=== PATIENT | female | born 1980 | race Caucasian/White ===

== ENCOUNTER 2016-08-28 12:42 | Emergency (ER) | payer OTHER ==
[~2016-08-28] VITALS: Ht 162.6 cm; Wt 63.5 kg
[~2016-08-28 12:42] MED LIST: CYCL5TAB PO; GABA100C4 PO; IBUP600T26 PO
[2016-08-28 12:49] VITALS: BP 124/87; PULSE 104; RESP 16; TEMP 98.1; O2SAT 98
[2016-08-28] MEDS ORDERED: SODIUM CHLOR 0.9% 1000 ML INJ 1,000 ML IV ONE (13:02)
--- NOTE | 2016-08-28 13:06 | PD ---
HPI Chief Complaint: Headache Time Seen by Provider: 13:02 Travel History International Travel<30 days: No Contact w/Intl Traveler<30days: No Traveled to known affect area: No History of Present Illness HPI 35-year-old female with history of migraine headaches, presents to the ER today because of 2 days history of frontal headaches which she states has been more severe than usual, she states is a 10 out of 10, and she has been nauseous. She denies any photophobia, neck stiffness, fevers, or any other symptoms. She states that they are typical for migraine headaches but they usually do not get this bad. She has been using Goody powder for the headaches. She currently rates the headache as a 10 out of 10. She states that she has fears that at home for the headaches but she did not take it because she does not want to get sleepy. Modifying Factors: None Associated Signs & Symptoms: Headaches Risk Factors: History of migraine headaches PFSH Past Medical History Hx Anticoagulant Therapy: No Autoimmune Disease: No Anxiety: Yes Depression: Yes Cardiovascular Problems: No Chemotherapy: No Cerebrovascular Accident: No Diabetes: No Diminished Hearing: No Endocrine: No Immune Disorder: No Musculoskeletal: No Neurologic: Yes (FREQUENT H/A) Psychiatric: Yes Reproductive: No Respiratory: No Migraines: Yes ?: Not LMP: THIS WEEK : 0 Past Surgical History Pacemaker: No Tonsillectomy: Yes Other Surgery: Yes Social History Alcohol Use: No Tobacco Use: No Substance Use: No Allergies-Medications (Allergen,Severity, Reaction): Coded Allergies: Amitriptyline (Verified Allergy, Intermediate, MUSCLE TWITCHING, 08/28/16) Reported Meds & Prescriptions Reported Meds & Active Scripts Active Reported Adipex-P (Phentermine HCl) 37.5 Mg Tab 37.5 Mg PO DAILY Zoloft (Sertraline HCl) 100 Mg Tab 100 Mg PO HS Necon 1/35 (Norethindrone-Ethinyl Estradiol) 1-35 Mg-Mcg Tab 1 Tab PO DAILY Fioricet (Ncbpilqjbg-Ltnvvcjspqxqd-Wdcvvzac) 50-300-40 Mg Cap 1-2 Cap PO Q6H PRN Review of Systems Except as stated in HPI: all other systems reviewed are Neg Physical Exam Narrative GENERAL: Well-developed young female patient currently mild distress. Awake and oriented 3. Sitting in a lighted room, no photophobia. SKIN: Focused skin assessment warm/dry. HEAD: Atraumatic. Normocephalic. EYES: Pupils equal and round. No scleral icterus. No injection or drainage. ENT: No nasal bleeding or discharge. Mucous membranes pink and moist. NECK: Trachea midline. No JVD. CARDIOVASCULAR: Regular rate and rhythm. No murmur appreciated. RESPIRATORY: No accessory muscle use. Clear to auscultation. Breath sounds equal bilaterally. GASTROINTESTINAL: Abdomen soft, non-tender, nondistended. Hepatic and splenic margins not palpable. MUSCULOSKELETAL: No obvious deformities. No clubbing. No cyanosis. No edema. NEUROLOGICAL: Awake and alert. No obvious cranial nerve deficits. Motor grossly within normal limits. Normal speech. PSYCHIATRIC: Appropriate mood and affect; insight and judgment normal. Data Data Last Documented VS Vital Signs Date Time Temp Pulse Resp B/P Pulse Ox O2 Delivery O2 Flow Rate FiO2 08/28/16 14:28 82 117/75 100 08/28/16 12:49 98.1 16 Orders Complete Blood Count With Diff (08/28/16 13:02) Basic Metabolic Panel (Bmp) (08/28/16 13:02) Ecg Monitoring (08/28/16 13:02) Iv Access Insert/Monitor (08/28/16 13:02) Oximetry (08/28/16 13:02) Sodium Chloride 0.9% Flush (Ns Flush) (08/28/16 13:15) Ketorolac Inj (Toradol Inj) (08/28/16 13:15) Diphenhydramine Inj (Benadryl Inj) (08/28/16 13:15) Metoclopramide Inj (Reglan Inj) (08/28/16 13:15) Sodium Chlor 0.9% 1000 Ml Inj (Ns 1000 M (08/28/16 13:02) Urinalysis - C+S If Indicated (08/28/16 13:02) Ed Urine Pregnancytest Poc (08/28/16 13:02) Urine Culture (08/28/16 13:27) Labs Laboratory Tests Test 08/28/16 08/28/16 13:22 13:27 White Blood Count 8.1 TH/MM3 Red Blood Count 4.16 MIL/MM3 Hemoglobin 12.7 GM/DL Hematocrit 37.8 % Mean Corpuscular Volume 90.9 FL Mean Corpuscular Hemoglobin 30.5 PG Mean Corpuscular Hemoglobin 33.5 % Concent Red Cell Distribution Width 12.1 % Platelet Count 301 TH/MM3 Mean Platelet Volume 9.0 FL Neutrophils (%) (Auto) 67.6 % Lymphocytes (%) (Auto) 25.0 % Monocytes (%) (Auto) 6.4 % Eosinophils (%) (Auto) 0.8 % Basophils (%) (Auto) 0.2 % Neutrophils # (Auto) 5.5 TH/MM3 Lymphocytes # (Auto) 2.0 TH/MM3 Monocytes # (Auto) 0.5 TH/MM3 Eosinophils # (Auto) 0.1 TH/MM3 Basophils # (Auto) 0.0 TH/MM3 CBC Comment DIFF FINAL Differential Comment Sodium Level 140 MEQ/L Potassium Level 4.1 MEQ/L Chloride Level 104 MEQ/L Carbon Dioxide Level 26.9 MEQ/L Anion Gap 9 MEQ/L Blood Urea Nitrogen 6 MG/DL Creatinine 0.63 MG/DL Estimat Glomerular Filtration 109 ML/MIN Rate Random Glucose 87 MG/DL Calcium Level 9.2 MG/DL Urine Collection Type CLEAN CATCH Urine Color YELLOW Urine Turbidity SLIGHT Urine pH 7.0 Urine Specific [place] 1.014 Urine Protein NEG mg/dL Urine Glucose (UA) NEG mg/dL Urine Ketones NEG mg/dL Urine Occult Blood SMALL Urine Nitrite NEG Urine Bilirubin NEG Urine Leukocyte Esterase NEG Urine RBC 4-9 /hpf Urine WBC 0-2 /hpf Urine Squamous Epithelial 0-5 /hpf Cells Urine Amorphous Sediment FEW Urine Bacteria MOD /hpf Microscopic Urinalysis Comment CULTURE INDICATED Urine Collection Time 1327 MDM Medical Decision Making Medical Screen Exam Complete: Yes Emergency Medical Condition: Yes Medical Record Reviewed: Yes Interpretation(s) Laboratory Tests Test 08/28/16 08/28/16 13:22 13:27 Blood Urea Nitrogen 6 MG/DL (7-18) Urine Occult Blood SMALL (NEG) Urine RBC 4-9 /hpf (0-3) Urine Bacteria MOD /hpf (NONE) Differential Diagnosis Headache/migraine headacherule out dehydration versus metabolic issues Narrative Course Lab work was drawn and IV fluids, Reglan, and Benadryl was given to the patient along with Toradol. UA shows some bacteriuria but patient is not having symptoms and there are no significant white blood cell counts, and I do not suspect UTI in this case. She was reevaluated at 2:50 PM and feels improved, states her pain is now a 1 out of 10. At this point, I have talked her about findings, and have talked briefly to her about obtaining further studies such as CAT scan of the head and lumbar puncture. Patient has no focal symptoms and is well-appearing in the ER with stable vital signs. I think the chance of her having other causes of headaches should be fairly low. However, I have stated to her that I cannot fully rule out other acute issues that are not obtaining further studies. At this point, patient states that she is comfortable with deferring further studies to rule out acute issues such as meningitis and intracranial bleeding considering how she is feeling. She would prefer to follow-up with primary care physician. Return for any worsening in symptoms as necessary. The plan and risks has been discussed with her and she states understanding. Diagnosis Primary Impression: Headache Med/Other Pt SpecificInfo: Prescription(s) given Scripts Ibuprofen (Motrin Ib)200 Mg Dau825 Mg PO Q6H PRN (PAIN SCALE 1 TO 10) #20 TAB Ref 0 Prov:Waylon Childress MD 08/28/16 Promethazine (Phenergan)25 Mg Tab25 Mg PO Q6H PRN (Nausea/Vomiting) #7 TAB Ref 0 Prov:Waylon Childress MD 08/28/16 Disposition: 01 DISCHARGE HOME Condition: Stable Waylon Childress MD Aug 28, 2016 13:06
[2016-08-28] MEDS ORDERED: PHEN1TAB84 PO (13:07)
[2016-08-28] MEDS ORDERED: ZOLO100T PO (13:07)
[2016-08-28] MEDS ORDERED: NECO1TAB2 PO (13:07)
[2016-08-28] MEDS ORDERED: BUTA1CAP PO (13:07)
[2016-08-28] MEDS ORDERED: diphenhydrAMINE HCL 50 MG/ML VIAL IVP ONE (13:15)
[2016-08-28] MEDS ORDERED: SODIUM CHLORIDE 0.9% FLUSH 10 ML FLUSH IVF PRN (13:15)
[2016-08-28] MEDS ORDERED: KETOROLAC TROMETHAMINE 30 MG/ML (IVP) VIAL IVP ONE (13:15)
[2016-08-28] MEDS ORDERED: METOCLOPRAMIDE HCL 10 MG/2 ML VIAL IVP ONE (13:15)
[2016-08-28 13:33] LABS: BLOOD, URINE SMALL (NEG); GLUCOSE,URINE NEG (NEG); KETONE, URINE NEG (NEG); METHOD OF COLLECTION CLEAN CATCH; NITRITE,URINE NEG (NEG); URINE COLOR YELLOW (YELLW/STRAW)
[2016-08-28 13:37] LABS: BACTERIA, URINE MOD /hpf; CULTURE IF INDICATED CULTURE INDICATED; WBC, URINE 0-2 /hpf (0-5)
[2016-08-28 13:42] VITALS: O2SAT 98
[2016-08-28 13:42] LABS: POTASSIUM 4.1 MEQ/L (3.5-5.1)
[2016-08-28 13:45] LABS: BICARBONATE 26.9 MEQ/L (21.0-32.0)
[2016-08-28 13:46] LABS: COMMENT (UR) CULTURE INDICATED; COMMENT2 (UR) MUCOUS PRESENT; SQUAMOUS EPITHELIAL CELL URINE 0-5 /hpf (0-5)
[2016-08-28 13:52] LABS: AUTOMATED NEUTROPHIL # 5.5 TH/MM3 (1.8-7.7); BASOPHIL % 0.2 % (0.0-2.0); EOSINOPHIL # 0.1 TH/MM3 (0-0.4); EOSINOPHIL % 0.8 % (0.0-4.0); HEMATOCRIT 37.8 % (35.0-46.0); HEMO FLAGS DIFF FINAL; MEAN CELL VOLUME 90.9 FL (80.0-100.0); MEAN CORPUSCULAR HEMOGLOBIN 30.5 PG (27.0-34.0); MEAN CORPUSCULAR HGB CONC 33.5 % (32.0-36.0); MONO % 6.4 % (0.0-8.0); NEUT % 67.6 % (16.0-70.0); PLATELET COUNT 301 TH/MM3 (150-450); RED BLOOD COUNT 4.16 MIL/MM3 (4.00-5.30); RED CELL DISTRIBUTION WIDTH 12.1 % (11.6-17.2); WHITE BLOOD COUNT 8.1 TH/MM3 (4.0-11.0)
[2016-08-28 14:28] VITALS: BP 117/75; PULSE 82; O2SAT 100
[2016-08-28] MEDS ORDERED: PROM25TA5 PO (14:58)
[2016-08-28] MEDS ORDERED: MOTR200T4 PO (14:58)
[2016-08-28 15:05] VITALS: BP 110/66
== END 2016-08-28 15:10 | disposition home or self-care (01) ==
LOC: PHED 12:42
DX: R51 Headache (principal)
CPT/HCPCS: 80048; 81001; 84703; 85025; 87086; 96374; 96375; 99284; J1200; J1885; J2765; J7030